=== PATIENT | female | born 1940 | race Caucasian/White ===

== ENCOUNTER 2018-02-21 18:01 | Observation (INO) | payer MEDICARE ==
[2018-02-21] MEDS ORDERED: SODIUM CHLORIDE 0.9% 500 ML INFUS.BAG IV ONE (18:07)
--- NOTE | 2018-02-21 18:11 | PDOC ---
History of Present Illness - General History Source: Patient - History of Present Illness Initial Comments: 02/21/18 18:08 Patient is a 77 year old female with a PMH of colon CA (s/p resection and chemotherapy in [facility]) who was BIBEMS for acute onset of abdominal pain. Patient started suddenly about 2 hours prior to presentation is cramping , constant, 10/10, diffuse and that radiates into her chest. Endorses constipation, has had 1-2 bowel movement every 3 days for the last 2 weeks. Was evaluated by her PMD earlier this week and given a medication for constipation and cannot recall the name. Patient had 1 watery bowel movement today. Patient denies fevers/chills. Patient denies chest pain, shortness of breath. Patient denies cough, sore throat, rhinorhea, visual changes Patient denies dysuria/hematuria. NKDA Surgical: Colon resection (2015), colostomy reversal (February 2016) Social: denies toxic habits PMD: cannot recall name, @ [facility] <Krystin Steiner - Last Filed: 02/21/18 19:10> <Margoth Turner - Last Filed: 02/22/18 01:44> - General Stated Complaint: CONSTIPATION Past History <Krystin Steiner - Last Filed: 02/21/18 19:10> <Margoth Turner - Last Filed: 02/22/18 01:44> - Past Medical History Home Medications: Ambulatory Orders Unobtainable 02/21/18 Review of Systems - Review of Systems Constitutional: No: Chills, Fever HEENTM: No: Blurred Vision, Double Vision Respiratory: No: Cough, Shortness of Breath Cardiac (ROS): No: Chest Pain, Lightheadedness, Palpitations, Syncope ABD/GI: Yes: Other (watery stool). No: Diarrhea, Nausea, Vomiting : No: Burning, Dysuria <Krystin Steiner - Last Filed: 02/21/18 19:10> *Physical Exam - Physical Exam Comments: 02/21/18 18:13 General: alert, awake, moving all 4 extremities, diaphoretic Abdomen: soft, (+) bowel sounds, rebound in LLQ, possible hernia/bulge in LLQ CV: S1/S2, no M/R/G Respiratory: CLTA B/L, no wheeze, crackle Extremity: 2+ DP pulses, no cord/erythema/edema <Krystin Steiner - Last Filed: 02/21/18 19:10> - Vital Signs Last Vital Signs Temp Pulse Resp BP Pulse Ox 97.8 F 63 16 118/68 99 02/21/18 18:19 02/21/18 18:19 02/21/18 18:19 02/21/18 18:19 02/21/18 18:19 <Margoth Turner - Last Filed: 02/22/18 01:44> ED Treatment Course - LABORATORY CBC & Chemistry Diagram: 02/21/18 18:46 02/21/18 18:46 - ADDITIONAL ORDERS Additional order review: Laboratory Results 02/21/18 02/21/18 18:46 18:46 Sodium 143 Potassium 3.0 L Chloride 104 Carbon Dioxide 28 Anion Gap 11 BUN 20 H Creatinine 1.0 Creat Clearance w eGFR 54.05 Random Glucose 88 Lactic Acid 1.7 Calcium 9.3 Total Bilirubin 0.4 AST 17 ALT 15 Alkaline Phosphatase 91 Creatine Kinase 66 Troponin I < 0.02 Total Protein 7.1 Albumin 3.6 Lipase 159 02/21/18 18:46 RBC 4.50 MCV 88.7 MCHC 34.4 RDW 13.2 MPV 9.7 Neutrophils % 37.6 L Lymphocytes % 56.0 H Monocytes % 5.3 Eosinophils % 0.9 Basophils % 0.2 - Medications Given in the ED: ED Medications Discontinued Medications Generic Name Dose Route Start Last Admin Trade Name Freq PRN Reason Stop Dose Admin Morphine Sulfate 4 mg 02/21/18 20:14 02/21/18 20:20 Morphine Injection - IVPUSH 02/21/18 20:15 4 mg ONCE ONE Administration Sodium Chloride 1,000 ml 02/21/18 18:07 02/21/18 19:30 Normal Saline - IV 02/21/18 18:08 1,000 ml ONCE ONE Administration <Margoth Turner - Last Filed: 02/22/18 01:44> Medical Decision Making - Medical Decision Making 02/21/18 18:11 77 year old female with abdominal pain. Peritoneal signs on PE. H/o colon Ca. Frontal diagnosis: hernia, SBO, adhesions, mesenteric ischemia, r/o ACS ( abdominal pain as anginal equivalent), UTI less likely pancreatitis, early appendicitis. Will obtain basic labs, lactic acid, lipase, EKG, troponin. IV fluid + Morphine as well as CT abdomen. Patient signed out to Dr. Aldana (Resident) and Dr. Turner (Attending) <Krystin Steiner - Last Filed: 02/21/18 19:10> *DC/Admit/Observation/Transfer <Krystin Steiner - Last Filed: 02/21/18 19:10> - Discharge Dispostion Decision to Admit order: Yes <Margoth Turner - Last Filed: 02/22/18 01:44> Diagnosis at time of Disposition: Abdominal pain, Hernia
[2018-02-21 19:16] LABS: BASO % 0.2 % (0-2.0); EOS % 0.9 % (0-4.5); HEMATOCRIT 39.9 % (32.4-45.2); HEMOGLOBIN 13.7 GM/dL (10.7-15.3); MCH 30.5 pg (25.7-33.7); MCHC 34.4 g/dl (32.0-36.0); MEAN CELL VOLUME 88.7 fl (80-96); MEAN PLT VOLUME 9.7 fl (7.5-11.1); MONO % 5.3 % (3.8-10.2); NEUT % 37.6 % (42.8-82.8); PLATELET COUNT 178 K/MM3 (134-434); RDW 13.2 % (11.6-15.6); WHITE BLOOD COUNT 13.3 K/mm3 (4.0-10.0)
--- NOTE | 2018-02-21 19:20 | PDOC ---
Attending Attestation - Medical Decision Making 02/22/18 01:[address] Cleveland, surgeon education reviewer, awaiting call back. <Maine Rooney - Last Filed: 02/22/18 01:30> - Resident Resident Name: Krystin Steiner - ED Attending Attestation I have performed the following: I have examined & evaluated the patient, The case was reviewed & discussed with the resident, I agree w/resident's findings & plan, Exceptions are as noted - HPI HPI: 02/21/18 19:17 77-year-old female history of colon cancer status post resection and colostomy and colostomy reversal at [facility] here today complaining of severe pain in the left lower quadrant nausea no vomiting patient had had constipation for several days then took some medication and since been having loose watery stools denies any fever or chills pain is worse with movement or cough otherwise no other moderating factors no recent antibiotic use patient cannot remember the names of her medications - Physicial Exam PE: 02/21/18 19:18 Awake alert no acute distress lungs are clear bilaterally heart is regular without any murmurs rubs or gallops abdomen is soft there is tenderness around the left lower quadrant near the prior colostomy site scar there is a palpable bulge which is nonreducible skin is warm and dry neurologically the patient is alert and oriented 3 - Medical Decision Making 02/21/18 19:19 Differential diagnosis includes small bowel obstruction incarcerated hernia diverticulitis colitis UTI Pyelo. Plan: CT abdomen and pelvis urinalysis CBC CMP IV fluids and pain control 02/22/18 01:[address] with ventral hernia containing bowel no obstruciton, possible foreign truman of chicken bones in sigmoid colon. pt denies eating chicken or chicken bones. on repeat abd exam, still very tender llq, palp hernia due to severe tenderness, mild wbc elevation ua still pending. will admit for observation, surgery consult, pt to be NPO. d/w dr cleveland will see pt in am. 02/22/18 02:07 d/w admitting resident, will admit to dr hunt <Margoth Turner - Last Filed: 02/22/18 02:07> Attestations - Attestations 02/22/18 01:31 Documentation prepared by Maine Rooney, acting as medical radiation therapist for Margoth Turner MD. <Maine Rooney - Last Filed: 02/22/18 01:30>
[2018-02-21 19:51] LABS: ALBUMIN 3.6 g/dl (3.4-5.0); ANION GAP 11 (8-16); BLOOD UREA NITROGEN 20 mg/dL (7-18); CALCIUM 9.3 mg/dL (8.5-10.1); CHLORIDE 104 mmol/L (98-107); CO2 28 mmol/L (21-32); GLUCOSE,RANDOM 88 mg/dL (74-106); LIPASE 159 U/L (73-393); SGOT/AST 17 U/L (15-37); SGPT/ALT 15 U/L (12-78); SODIUM 143 mmol/L (136-145)
[2018-02-21 19:55] LABS: ALK PHOS 91 U/L (45-117); BILIRUBIN,TOTAL 0.4 mg/dL (0.2-1.0); TOT PROT 7.1 g/dl (6.4-8.2)
[2018-02-21] MEDS ORDERED: morphine CARPU-JECT 4 MG/1 ML DISP.SYRIN IVPUSH ONE (20:14)
[2018-02-21] MEDS ORDERED: morphine SULFATE 4 MG/ML VIAL ONE (20:17)
[2018-02-21] MEDS: NYSTATIN 100,000 UNIT/GM TOPICAL CREAM 15 GM TUBE TP SCH (23:00)
[2018-02-22 03:07] LABS: URINE APPEARANCE CLEAR; URINE BILIRUBIN NEGATIVE (<2.0 mg/dL); URINE COLOR LTYELLOW; URINE GLUCOSE (UA) NEGATIVE (NEGATIVE); URINE KETONE NEGATIVE (NEGATIVE); URINE LEUK ESTERASE TRACE (NEGATIVE); URINE NITRITE NEGATIVE (NEGATIVE); URINE PROTEIN NEGATIVE (NEGATIVE); URINE UROBILINOGEN NEGATIVE mg/dL (0.2-1.0)
[2018-02-22 03:15] LABS: EPI CELLS RARE /HPF (FEW); URINE MUCUS RARE
[2018-02-22] MEDS ORDERED: SODIUM CHLORIDE 1,000 ML IV SCH (04:00)
[2018-02-22] MEDS: KCL 10 MEQ IVPB 10 MEQ/100 ML INFUS.BAG IVPB SCH ×2 (04:15→04:36)
[2018-02-22] MEDS ORDERED: KCL 10 MEQ IVPB 20 MEQ/200 ML INFUS.BAG IVPB ONE (04:34)
--- NOTE | 2018-02-22 04:39 | PN ---
Teaching Attending Note Name of Resident: Eliezer Lucero ATTENDING PHYSICIAN STATEMENT I saw and evaluated the patient. I reviewed the resident's note and discussed the case with the resident. I agree with the resident's findings and plan as documented. SUBJECTIVE: Patient is a 77 year old woman with a PMH of colon CA (s/p resection and chemotherapy in [facility]) who presents with acute onset of abdominal pain. Pain started suddenly about 2 hours prior to presentation. Pain is cramping, constant, 10/10, diffuse and radiates into her chest. Has had constipation, but now has diarrhea. Does not remember the name of the laxative she has been taking, but had several watery bowel movements today. Was evaluated by her PMD earlier this week and given a medication for constipation and cannot recall the name. OBJECTIVE: Alert Vital Signs Period Temp Pulse Resp BP Sys/Lane Pulse Ox Last 24 Hr 97.8 F 63 16 118/68 99 HEENT: No Jaundice, eye redness or discharge, PERRLA, EOMI. Normocephalic, atraumatic. External ears are normal and hearing is grossly intact. No nasal discharge. Neck: Supple, nontender. No palpable adenopathy or thyromegaly. No JVD Chest: Good effort. Clear to auscultation and percussion. Heart: Regular. No S3, rub or murmur Abdomen: Large ventral hernia; soft, LLQ tenderness and no HSM. No rebound or guarding. Normoactive bowel sounds. Ext: Peripheral pulses intact. No leg edema. Skin: Warm and dry. No petechiae, rash or ecchymosis. Neuro: Alert. Oriented x3. CN 2-12 grossly intact. Sensation grossly intact in all four extremities and DTR are symmetric. Current Medications Generic Name Dose Route Start Last Admin Trade Name Freq PRN Reason Stop Dose Admin Sodium Chloride 1,000 mls @ 83 mls/hr 02/22/18 04:00 Normal Saline - IV ASDIR NATALIE Potassium Chloride 10 meq in 100 mls @ 100 mls/hr 02/22/18 04:15 Potassium Chloride 10 Meq Premix Ivpb - IVPB 02/22/18 06:14 Q60M NATALIE Nystatin 1 applic 02/21/18 22:30 02/21/18 23:00 Mycostatin Cream - TP 1 dose BID NATALIE Administration Home Medications Medication Instructions Recorded Unobtainable 02/21/18 Abnormal Lab Results 02/21/18 02/21/18 02/22/18 18:46 18:46 00:01 WBC 13.3 H Neutrophils % 37.6 L Lymphocytes % 56.0 H Potassium 3.0 L BUN 20 H Ur Specific [place] 1.054 H Urine Blood 1+ H ASSESSMENT AND PLAN: 1. Abdominal Pain - CT scan shows ventral hernia containing bowel with no obstruction or evidence of infection. Loose BM may be due to laxative use. Leukocytosis with increased lymphocytes is concerning - will monitor and send any new loose stools for analysis. No indication for antibiotics at this time. IV NS at 100 ml/hour for dehydration. Check Mg level, treat with Zofran and protonix and consult surgery. Continue Eliquis for remote DVT. 2. DVT prophylaxis - On Eliquis 3. Advance directives - Full code
--- NOTE | 2018-02-22 04:39 | HP ---
CHIEF COMPLAINT: abdominal pain PCP: Anirudh lopez HISTORY OF PRESENT ILLNESS: Pt is a 77 y/o F with PMH Colon CA s/p resection who presented to the ED with worsening abdominal pain and distension associated with bouts of constipation and diarrhea. Pt was originally diagnosed with colon CA in [facility] after visiting numerous doctors with vague complaint of abdominal pain and finally having exploratory laparotomy in Aug 2015. 22 cm of bowel was removed. Pt can recall there was an issue with the resection because of proximity of the lesion to the anus, but pt cannot recall any other details. She had a colostomy placed during that surgery. She was treated with Chemotherapy (no radiation) from December - May 2016. She had 8 sessions total each lasting 3 days and occurring every 21 days. Pt also experienced LLE DVT. She had an IVC filter placed and was put on Eliquis 5 bid, which she continues to take. Her colostomy was reversed in Feb 2017. However, she was told that because of the duration of the surgery (>8hrs), her abdominal was could not be repaired properly at that time. [place] the [place] in Feb [place] and has been going to several doctors in with complaint of abdominal pain and constipation. So far, she states she has been given many medications, especially many laxitives, but her symptoms have not resolved. Pt also states she had divirticulosis 4 months ago which resolved spontaneously. Today, pt comes to ED with complaint of unusually bad lower abdominal pain associated with abdominal distension and intermittent diarrhea vs constipation. It is the same pain she's had in the past. ER course was notable for: (1) WBC 13, K 3, UA: 1+ blood, high specific gravity (2) Abdominal/pelvic C. showed fluid in abdomen (3) Recent Travel: PAST MEDICAL HISTORY: Colon CA, DVT (provoked), divirticulosis PAST SURGICAL HISTORY: colon resection, and repair Social History: Smoking:denies Alcohol:denies Drugs: denies Family History: Allergies Fish Containing Products Allergy (Mild, Verified 02/21/18 20:11) Itching HOME MEDICATIONS: Home Medications Medication Instructions Recorded Unobtainable 02/21/18 REVIEW OF SYSTEMS CONSTITUTIONAL: Absent: fever, chills, diaphoresis, generalized weakness, malaise, loss of appetite, weight change HEENT: Absent: rhinorrhea, nasal congestion, throat pain, throat swelling, difficulty swallowing, mouth swelling, ear pain, eye pain, visual changes CARDIOVASCULAR: Absent: chest pain, syncope, palpitations, irregular heart rate, lightheadedness , peripheral edema RESPIRATORY: Absent: cough, shortness of breath, dyspnea with exertion, orthopnea, wheezing, stridor, hemoptysis GASTROINTESTINAL:abdominal pain Absent: , abdominal distension, nausea, vomiting, diarrhea, constipation, melena , hematochezia GENITOURINARY: Absent: dysuria, frequency, urgency, hesitancy, hematuria, flank pain, genital pain MUSCULOSKELETAL: Absent: myalgia, arthralgia, joint swelling, back pain, neck pain SKIN: Absent: rash, itching, pallor HEMATOLOGIC/IMMUNOLOGIC: Absent: easy bleeding, easy bruising, lymphadenopathy, frequent infections ENDOCRINE: Absent: unexplained weight gain, unexplained weight loss, heat intolerance, cold intolerance NEUROLOGIC: burning sensation of plantar regions of feet Absent: headache, focal weakness or paresthesias, dizziness, unsteady gait, seizure, mental status changes, bladder or bowel incontinence PSYCHIATRIC: Absent: anxiety, depression, suicidal or homicidal ideation, hallucinations. PHYSICAL EXAMINATION Vital Signs - 24 hr 02/21/18 18:19 Temperature 97.8 F Pulse Rate 63 Respiratory 16 Rate Blood Pressure 118/68 O2 Sat by Pulse 99 Oximetry (%) Gen: NAD, lying in bed HEENT: NCAT, PERRL, EOMI Neck: supple no jvd Cardio: rrr, normal s1s2, no mrg appreciated Pulm: cta b/l Abd: soft. Surgical scars throughout. tender to palpation inferior epigastric region, LLQ Laboratory Results - last 24 hr 02/21/18 02/21/18 02/21/18 18:46 18:46 18:46 WBC 13.3 H RBC 4.50 Hgb 13.7 Hct 39.9 MCV 88.7 MCH 30.5 MCHC 34.4 RDW 13.2 Plt Count 178 MPV 9.7 Absolute Neuts (auto) 5.0 Neutrophils % 37.6 L Lymphocytes % 56.0 H Monocytes % 5.3 Eosinophils % 0.9 Basophils % 0.2 Nucleated RBC % 0 Sodium 143 Potassium 3.0 L Chloride 104 Carbon Dioxide 28 Anion Gap 11 BUN 20 H Creatinine 1.0 Creat Clearance w eGFR 54.05 Random Glucose 88 Lactic Acid 1.7 Calcium 9.3 Total Bilirubin 0.4 AST 17 ALT 15 Alkaline Phosphatase 91 Creatine Kinase 66 Troponin I < 0.02 Total Protein 7.1 Albumin 3.6 Lipase 159 Urine Color Urine Appearance Urine pH Ur Specific [place] Urine Protein Urine Glucose (UA) Urine Ketones Urine Blood Urine Nitrite Urine Bilirubin Urine Urobilinogen Ur Leukocyte Esterase Urine WBC (Auto) Urine RBC (Auto) Ur Epithelial Cells Urine Mucus 02/22/18 00:01 WBC RBC Hgb Hct MCV MCH MCHC RDW Plt Count MPV Absolute Neuts (auto) Neutrophils % Lymphocytes % Monocytes % Eosinophils % Basophils % Nucleated RBC % Sodium Potassium Chloride Carbon Dioxide Anion Gap BUN Creatinine Creat Clearance w eGFR Random Glucose Lactic Acid Calcium Total Bilirubin AST ALT Alkaline Phosphatase Creatine Kinase Troponin I Total Protein Albumin Lipase Urine Color Ltyellow Urine Appearance Clear Urine pH 8.0 Ur Specific [place] 1.054 H Urine Protein Negative Urine Glucose (UA) Negative Urine Ketones Negative Urine Blood 1+ H Urine Nitrite Negative Urine Bilirubin Negative Urine Urobilinogen Negative Ur Leukocyte Esterase Trace Urine WBC (Auto) 1 Urine RBC (Auto) 11 Ur Epithelial Cells Rare Urine Mucus Rare ASSESSMENT/PLAN: Pt is a 77 y/o F with PMH Colon CA s/p resection who presented to the ED with worsening abdominal pain and distension associated with bouts of constipation and diarrhea. #Abdominal pain -hernia present on CT - however, no evidence of strangulation -NPO -Surg consult -IR consult for possible paracentesis, NS repeat labs #DVT -c/w eliquis #HypoK -repleting #FEN -NS -lytes wnl -NPO #PPx -on eliquis #dispo -med/surg for eval by surgery Note: Medications reconciled with the patient. Visit type - Emergency Visit Emergency Visit: Yes ED Registration Date: 02/22/18 Care time: The patient presented to the Emergency Department on the above date and was hospitalized for further evaluation of their emergent condition. - New Patient This patient is new to me today: Yes Date on this admission: 02/22/18 - Critical Care Critical Care patient: No Hospitalist Screening - Colonoscopy Questionnaire Colonoscopy Questionnaire: Colonoscopy Questionnaire - Patient: 50 - 75 years old and never had a screening colonoscopy: Unknown History of colon or rectal polyps, or CA: Unknown History of IBD, Crohn's disease or UC: Unknown History of abdominal radiation therapy as a child: Unknown - Relative: 1 with colon or rectal CA, or polyps at age 60 or younger: Unknown Colon or rectal CA diagnosed at age 45 or younger: Unknown Multiple relatives with colon or rectal CA: Unknown - Outcome: Screening Result: Negative Screen
[2018-02-22 07:25] LABS: BASO % 0.9 % (0-2.0); EOS % 1.9 % (0-4.5); HEMATOCRIT 39.1 % (32.4-45.2); HEMOGLOBIN 13.5 GM/dL (10.7-15.3); LYMPH % 44.7 % (8-40); MCH 31.2 pg (25.7-33.7); MCHC 34.5 g/dl (32.0-36.0); MEAN CELL VOLUME 90.5 fl (80-96); MEAN PLT VOLUME 9.6 fl (7.5-11.1); MONO % 6.1 % (3.8-10.2); NEUT % 46.4 % (42.8-82.8); PLATELET COUNT 156 K/MM3 (134-434); RBC 4.32 M/mm3 (3.60-5.2); RDW 13.3 % (11.6-15.6); WHITE BLOOD COUNT 8.4 K/mm3 (4.0-10.0)
[2018-02-22 07:50] LABS: CHLORIDE 108 mmol/L (98-107); SODIUM 145 mmol/L (136-145)
[2018-02-22 07:58] LABS: ALBUMIN 3.3 g/dl (3.4-5.0); ALK PHOS 88 U/L (45-117); ANION GAP 11 (8-16); BILIRUBIN,TOTAL 0.4 mg/dL (0.2-1.0); BLOOD UREA NITROGEN 15 mg/dL (7-18); CALCIUM 8.3 mg/dL (8.5-10.1); CO2 26 mmol/L (21-32); CREATININE 0.7 mg/dL (0.55-1.02); GLUCOSE,RANDOM 90 mg/dL (74-106); PHOSPHOROUS 2.9 mg/dL (2.5-4.9); SGPT/ALT 13 U/L (12-78); TOT PROT 6.3 g/dl (6.4-8.2)
[2018-02-22 08:15] LABS: POTASSIUM 3.6 mmol/L (3.5-5.1)
[2018-02-22 08:19] LABS: MAGNESIUM 2.2 mg/dL (1.8-2.4); SGOT/AST 20 U/L (15-37)
--- NOTE | 2018-02-22 09:38 | PN ---
Physical Exam: SUBJECTIVE: Patient seen and examined, some lower abdominal pain, no diarrhea currently. Wants to drink. No other complaints OBJECTIVE: Vital Signs Period Temp Pulse Resp BP Sys/Lane Pulse Ox Last 24 Hr 97.8 F-98.4 F 60-63 16-17 118-125/68-78 95-99 GENERAL: lying in bed in no acute distress Chest; CTAB, no rales or wheezing Abdomen:Soft, lower abdominal tenderness, no voluntary or involuntary guarding or rigidity, positive bowel sounds Extremities: no edema Laboratory Results - last 24 hr 02/21/18 02/21/18 02/21/18 18:46 18:46 18:46 WBC 13.3 H RBC 4.50 Hgb 13.7 Hct 39.9 MCV 88.7 MCH 30.5 MCHC 34.4 RDW 13.2 Plt Count 178 MPV 9.7 Absolute Neuts (auto) 5.0 Neutrophils % 37.6 L Neutrophils % (Manual) Band Neutrophils % Lymphocytes % 56.0 H Lymphocytes % (Manual) Monocytes % 5.3 Monocytes % (Manual) Eosinophils % 0.9 Eosinophils % (Manual) Basophils % 0.2 Basophils % (Manual) Myelocytes % (Man) Nucleated RBC % 0 Metamyelocytes Sodium 143 Potassium 3.0 L Chloride 104 Carbon Dioxide 28 Anion Gap 11 BUN 20 H Creatinine 1.0 Creat Clearance w eGFR 54.05 Random Glucose 88 Hemoglobin A1c % Lactic Acid 1.7 Calcium 9.3 Phosphorus Magnesium Total Bilirubin 0.4 AST 17 ALT 15 Alkaline Phosphatase 91 Creatine Kinase 66 Troponin I < 0.02 Total Protein 7.1 Albumin 3.6 Lipase 159 Urine Color Urine Appearance Urine pH Ur Specific [place] Urine Protein Urine Glucose (UA) Urine Ketones Urine Blood Urine Nitrite Urine Bilirubin Urine Urobilinogen Ur Leukocyte Esterase Urine WBC (Auto) Urine RBC (Auto) Ur Epithelial Cells Urine Mucus 02/22/18 02/22/18 02/22/18 00:01 06:00 06:40 WBC RBC Hgb Hct MCV MCH MCHC RDW Plt Count MPV Absolute Neuts (auto) Neutrophils % Neutrophils % (Manual) Band Neutrophils % Lymphocytes % Lymphocytes % (Manual) Monocytes % Monocytes % (Manual) Eosinophils % Eosinophils % (Manual) Basophils % Basophils % (Manual) Myelocytes % (Man) Nucleated RBC % Metamyelocytes Sodium 145 Potassium 3.6 Chloride 108 H Carbon Dioxide 26 Anion Gap 11 BUN 15 Creatinine 0.7 Creat Clearance w eGFR > 60 Random Glucose 90 Hemoglobin A1c % 6.1 H Lactic Acid Calcium 8.3 L Phosphorus 2.9 Magnesium 2.2 Total Bilirubin 0.4 AST 20 ALT 13 Alkaline Phosphatase 88 Creatine Kinase Troponin I Total Protein 6.3 L Albumin 3.3 L Lipase Urine Color Ltyellow Urine Appearance Clear Urine pH 8.0 Ur Specific [place] 1.054 H Urine Protein Negative Urine Glucose (UA) Negative Urine Ketones Negative Urine Blood 1+ H Urine Nitrite Negative Urine Bilirubin Negative Urine Urobilinogen Negative Ur Leukocyte Esterase Trace Urine WBC (Auto) 1 Urine RBC (Auto) 11 Ur Epithelial Cells Rare Urine Mucus Rare 02/22/18 06:45 WBC 8.4 RBC 4.32 Hgb 13.5 Hct 39.1 MCV 90.5 MCH 31.2 MCHC 34.5 RDW 13.3 Plt Count 156 MPV 9.6 Absolute Neuts (auto) 3.9 Neutrophils % 46.4 D Neutrophils % (Manual) 46.0 Band Neutrophils % 0.0 Lymphocytes % 44.7 H D Lymphocytes % (Manual) 45.0 H Monocytes % 6.1 Monocytes % (Manual) 3 L Eosinophils % 1.9 D Eosinophils % (Manual) 3.0 Basophils % 0.9 D Basophils % (Manual) 0.0 Myelocytes % (Man) 0 Nucleated RBC % 0 Metamyelocytes 0 Sodium Potassium Chloride Carbon Dioxide Anion Gap BUN Creatinine Creat Clearance w eGFR Random Glucose Hemoglobin A1c % Lactic Acid Calcium Phosphorus Magnesium Total Bilirubin AST ALT Alkaline Phosphatase Creatine Kinase Troponin I Total Protein Albumin Lipase Urine Color Urine Appearance Urine pH Ur Specific [place] Urine Protein Urine Glucose (UA) Urine Ketones Urine Blood Urine Nitrite Urine Bilirubin Urine Urobilinogen Ur Leukocyte Esterase Urine WBC (Auto) Urine RBC (Auto) Ur Epithelial Cells Urine Mucus Active Medications Generic Name Dose Route Start Last Admin Trade Name Freq PRN Reason Stop Dose Admin Sodium Chloride 1,000 mls @ 83 mls/hr 02/22/18 04:00 02/22/18 04:00 Normal Saline - IV 83 mls/hr ASDIR NATALIE Administration Nystatin 1 applic 02/21/18 22:30 02/21/18 23:00 Mycostatin Cream - TP 1 dose BID NATALIE Administration ASSESSMENT/PLAN: 77 yof with PMhx of Colon ca s/p resection/chemotherapy 2015, reversal 02/2017, LLE DVT s/p IVC filter on Eliquis, chronic diarrhea intermittently with constipation, seen multiple providers admitted with worsening abdominal pain. -Abdominal pain -LLE DVT s/p IVC filter, on eliquis - Colon ca s/p resection/chemotherapy 2015, reversal 02/2017 Plan: CT A/p noted, ?Foreign body in sigmoid colon, no obstruction or perforation, follow up official read. Surgery consult appreciated. WBC normalized. ADvance to regular diet as tolerated. d/c IVF once PO intake adequate. Zofran/protonix. Continue eliquis. Dispo d/c in 24 hours if tolerating diet and no new concerns. Plan discussed with patient and RN in detail, all questions answered. Visit type - Emergency Visit Emergency Visit: Yes ED Registration Date: 02/22/18 Care time: The patient presented to the Emergency Department on the above date and was hospitalized for further evaluation of their emergent condition. - New Patient This patient is new to me today: Yes Date on this admission: 02/22/18 - Critical Care Critical Care patient: No - Discharge Referral Referred to [facility] Med P.C.: No
--- NOTE | 2018-02-22 09:41 | CONSULT ---
Consult Consult Specialty:: General surgery Reason for Consultation:: Ventral Hernia - History of Present Illness Chief Complaint: Abdominal pain History of Present Illness: 77 yo female PMH DM, Colon CA s/p resection s/p colostomy reversal who presented to the ED with worsening abdominal pain and distension associated with bouts of constipation and diarrhea. She has a ventral hernia. She has not had vomiting, fevers or chills. He pain was difficult to control in the ED. We were asked to assess. - History Source History Provided By: Patient, Medical Record Limitations to Obtaining History: No Limitations - Past Medical History Gastrointestinal: Yes: Cancer - Past Surgical History Past Surgical History: Yes: Colectomy, Colostomy - Alcohol/Substance Use Hx Alcohol Use: No - Smoking History Smoking history: Never smoked Have you smoked in the past 12 months: No - Social History ADL: Independent Place of : Other ([facility]) History of Recent Travel: No Home Medications - Allergies Allergies/Adverse Reactions: Allergies Allergy/AdvReac Type Severity Reaction Status Date / Time Fish Containing Products Allergy Mild Itching Verified 02/21/18 20:11 - Home Medications Home Medications: Ambulatory Orders Calcium Carbonate/Vitamin D3 [Jason-Quick Liquid] 480 ml PO DAILY 02/22/18 Review of Systems - Review of Systems Constitutional: denies: Chills, Fever Eyes: denies: Blind Spots, Recent Change in Vision HENT: denies: Difficult Swallowing, Throat Pain Neck: denies: Pain on Movement, Swollen Glands, Tenderness Cardiovascular: denies: Chest Pain, Edema Respiratory: denies: Cough, SOB Gastrointestinal: reports: Abdominal Pain, Constipation, Diarrhea. denies: Bloating, Indigestion, Nausea, Vomiting Genitourinary: denies: Flank Pain Breasts: reports: No Symptoms Reported. denies: Pain Integumentary: denies: Rash, Wound Neurological: denies: Confusion, Incoordination Endocrine: denies: Unexplained Weight Gain, Unexplained Weight Loss Hematology/Lymphatic: denies: Easily Bruised, Excessive Bleeding Psychiatric: denies: Anxiety, Depression Physical Exam Vital Signs: Vital Signs Temperature 98.4 F 02/22/18 06:47 Pulse Rate 60 02/22/18 06:47 Respiratory Rate 17 02/22/18 06:47 Blood Pressure 125/78 02/22/18 06:47 O2 Sat by Pulse Oximetry (%) 95 02/22/18 06:47 Constitutional: Yes: Well Nourished, No Distress, Calm Eyes: Yes: Conjunctiva Clear, EOM Intact HENT: Yes: Atraumatic, Normocephalic Neck: Yes: Supple, Trachea Midline Cardiovascular: Yes: Regular Rate and Rhythm, S1, S2 Respiratory: Yes: Regular, CTA Bilaterally Gastrointestinal: Yes: Normal Bowel Sounds, Soft, Abdomen, Obese, Hernia (Large reducible ventral hernia FULLY reducible. discomfort of LLQ former colostomy site.), Tenderness (Hernia). No: Ascites, Distention, Tenderness, Epigastrium, Tenderness, Rebound ...Rectal Exam: No: Hemorrhoids/External, Hemorrhoids/Internal, Mass, Sphincter Tone Normal Renal/: No: CVA Tenderness - Left, CVA Tenderness - Right Musculoskeletal: No: Muscle Pain, Muscle Weakness Extremities: No: Cool, Cyanosis Edema: No Peripheral Pulses WNL: Yes Integumentary: No: Erythema, Incision, Jaundice Wound/Incision: Yes: Clean/Dry, Other (Wel healed with underlying hernias) Neurological: Yes: Alert, Oriented Psychiatric: Yes: Alert, Oriented Labs: CBC, BMP 02/22/18 06:45 02/22/18 06:40 Imaging - Results Cat Scan: Report Reviewed, Image Reviewed Problem List - Problems (1) Ventral hernia without obstruction or gangrene Assessment/Plan: Ventral incisional hernias are fully reducible, may have ingested bones as well. She is passing BM and flatus, pain may be related to concominant chronic constipation. No acute surgical intervention. WBC 13-->8 after hydration. Diet as tolerated adequate analgesia increase hydration and dietary fiber GI for followup endoscopy and bowel regimen Will follow peripherally Thank you for the opportunity to participate in the care of this patient. Code(s): K43.9 - VENTRAL HERNIA WITHOUT OBSTRUCTION OR GANGRENE (2) Abdominal pain Code(s): R10.9 - UNSPECIFIED ABDOMINAL PAIN Qualifiers: Abdominal location: generalized Qualified Code(s): R10.84 - Generalized abdominal pain (3) History of colon cancer, no staging Code(s): Z85.038 - PERSONAL HISTORY OF MALIGNANT NEOPLASM OF LARGE INTESTINE (4) Constipation Code(s): K59.00 - CONSTIPATION, UNSPECIFIED
[2018-02-22] MEDS ORDERED: ONDANSETRON 4 MG/2 ML VIAL IVPUSH PRN (09:42)
[2018-02-22] MEDS ORDERED: PANTOPRAZOLE SODIUM 40 MG VIAL ONE (10:16)
[2018-02-22] MEDS: DEXTROSE 5%-NORMAL SALINE 1,000 ML IV SCH ×2 (10:35→17:53)
[2018-02-22] MEDS: APIXABAN 5 MG TABLET PO SCH ×2 (10:35→22:30)
[2018-02-22] MEDS: PANTOPRAZOLE SODIUM 40 MG VIAL IVPUSH SCH (10:35)
[2018-02-22] MEDS: NYSTATIN 100,000 UNIT/GM TOPICAL CREAM 15 GM TUBE TP SCH ×2 (10:37→22:31)
[2018-02-22] MEDS ORDERED: BISACODYL 5 MG TABLET.DR (FP) PO ONE (13:34)
[2018-02-22 17:05] VITALS: BMI 25.2
--- NOTE | 2018-02-22 19:17 | EKG ---
Test Reason : Blood Pressure : / mmHG Vent. Rate : 055 BPM Atrial Rate : 055 BPM P-R Int : 148 ms QRS Dur : 088 ms QT Int : 462 ms P-R-T Axes : 040 013 025 degrees QTc Int : 441 ms SINUS BRADYCARDIA OTHERWISE NORMAL ECG NO PREVIOUS ECGS AVAILABLE Confirmed by MD BARTOLO, FLORIN ([id number]) on 02/22/2018 7:17:00 PM Referred By: Confirmed By:FLORIN MCFARLAND MD
[2018-02-23 08:41] LABS: BASO % 1.1 % (0-2.0); EOS % 2.2 % (0-4.5); HEMATOCRIT 38.9 % (32.4-45.2); HEMOGLOBIN 13.5 GM/dL (10.7-15.3); LYMPH % 41.4 % (8-40); MCH 31.3 pg (25.7-33.7); MCHC 34.6 g/dl (32.0-36.0); MEAN CELL VOLUME 90.6 fl (80-96); MEAN PLT VOLUME 9.4 fl (7.5-11.1); MONO % 3.9 % (3.8-10.2); NEUT % 51.4 % (42.8-82.8); PLATELET COUNT 142 K/MM3 (134-434); RBC 4.29 M/mm3 (3.60-5.2); RDW 13.6 % (11.6-15.6); WHITE BLOOD COUNT 9.1 K/mm3 (4.0-10.0)
[2018-02-23 09:03] LABS: ANION GAP 6 (8-16); BLOOD UREA NITROGEN 7 mg/dL (7-18); CALCIUM 8.4 mg/dL (8.5-10.1); CHLORIDE 109 mmol/L (98-107); CO2 30 mmol/L (21-32); CREATININE 0.7 mg/dL (0.55-1.02); GLUCOSE,RANDOM 120 mg/dL (74-106); PHOSPHOROUS 3.1 mg/dL (2.5-4.9); POTASSIUM 3.6 mmol/L (3.5-5.1); SODIUM 145 mmol/L (136-145)
--- NOTE | 2018-02-23 09:48 | PN ---
Progress Note, Physician Chief Complaint: abdominal pain History of Present Illness: 77 yo female PMH DM, Colon CA s/p resection s/p colostomy reversal who presented to the ED with worsening abdominal pain and distension associated with bouts of constipation and diarrhea. stable overnight. complains of abdominal pain, but improved from admission. - Current Medication List Current Medications: Active Medications Apixaban (Eliquis -) 5 mg PO BID [facility] Last Admin: 02/22/18 22:30 Dose: 5 mg Dextrose/Sodium Chloride (D5-Ns -) 1,000 mls @ 100 mls/hr IV ASDIR [facility] Last Admin: 02/22/18 17:53 Dose: 100 mls/hr Nystatin (Mycostatin Cream -) 1 applic TP BID [facility] Last Admin: 02/22/18 22:31 Dose: Not Given Ondansetron HCl (Zofran Injection) 4 mg IVPUSH Q6H PRN PRN Reason: NAUSEA Pantoprazole Sodium (Protonix Iv) 40 mg IVPUSH DAILY [facility] Last Admin: 02/22/18 10:35 Dose: 40 mg - Objective Vital Signs: Vital Signs Temperature 98.7 F 02/23/18 06:00 Pulse Rate 55 L 02/23/18 06:00 Respiratory Rate 20 02/23/18 06:00 Blood Pressure 120/59 02/23/18 06:00 O2 Sat by Pulse Oximetry (%) 98 02/22/18 17:00 Vital Signs Period Temp Pulse Resp BP Sys/Lane Pulse Ox Last 24 Hr 98.1 F-98.9 F 50-76 18-20 92-132/52-72 98-98 Intake & Output 02/22/18 02/23/18 02/23/18 23:59 07:59 15:59 Intake Total 850 150 Balance 850 150 Weight 142 lb 9 oz 138 lb Intake: IV 500 D5-Ns - 1,000 ml @ 100 500 mls/hr IV ASDIR [facility] Rx#: [id number] Oral 350 150 Other: Voiding Method Toilet Toilet # Unmeasured Voids Void 2 1 Bowel Movement No Height 5 ft 3 in Body Mass Index (BMI) 25.2 Weight Measurement Method Built in [facility] Constitutional: Yes: Well Nourished, No Distress, Calm Eyes: Yes: Conjunctiva Clear, EOM Intact HENT: Yes: Atraumatic Neck: Yes: Supple, Trachea Midline Cardiovascular: Yes: Regular Rate and Rhythm, S1, S2 Respiratory: Yes: Regular, CTA Bilaterally Gastrointestinal: Yes: Normal Bowel Sounds, Soft, Tenderness (discomfort at the hernia). No: Tenderness, Epigastrium, Tenderness, Rebound ...Rectal Exam: Yes: Deferred Genitourinary: No: CVA Tenderness - Left, CVA Tenderness - Right Musculoskeletal: No: Muscle Pain, Muscle Weakness Extremities: No: Cool, Cyanosis Edema: No Peripheral Pulses WNL: Yes Peripheral Pulses: Left Radial: 2+, Right Radial: 2+, Left Doralis Pedis: 2+, Right Dorsalis Pedis: 2+ Integumentary: No: Erythema, Incision, Jaundice Neurological: Yes: Alert, Oriented Psychiatric: Yes: Alert, Oriented Labs: CBC, BMP 02/23/18 07:30 02/23/18 07:30 Problem List - Problems (1) Ventral hernia without obstruction or gangrene Assessment/Plan: Ventral incisional hernias are fully reducible, may have ingested bones as well. She is passing BM and flatus, pain may be related to concominant chronic constipation. No acute surgical intervention. WBC 13-->8 after hydration. tolerating regular diet. adequate analgesia increase hydration and dietary fiber GI for followup endoscopy and bowel regimen Will follow peripherally Code(s): K43.9 - VENTRAL HERNIA WITHOUT OBSTRUCTION OR GANGRENE (2) Abdominal pain Code(s): R10.9 - UNSPECIFIED ABDOMINAL PAIN Qualifiers: Abdominal location: generalized Qualified Code(s): R10.84 - Generalized abdominal pain (3) History of colon cancer, no staging Code(s): Z85.038 - PERSONAL HISTORY OF MALIGNANT NEOPLASM OF LARGE INTESTINE (4) Constipation Code(s): K59.00 - CONSTIPATION, UNSPECIFIED
[2018-02-23] MEDS: PANTOPRAZOLE SODIUM 40 MG VIAL IVPUSH SCH (10:37)
[2018-02-23] MEDS: APIXABAN 5 MG TABLET PO SCH (10:37)
[2018-02-23] MEDS: NYSTATIN 100,000 UNIT/GM TOPICAL CREAM 15 GM TUBE TP SCH (10:38)
[2018-02-23] MEDS: DEXTROSE 5%-NORMAL SALINE 1,000 ML IV SCH (10:38)
--- NOTE | 2018-02-23 13:04 | PN ---
Teaching Attending Note Name of Resident: Salvador Britt ATTENDING PHYSICIAN STATEMENT I saw and evaluated the patient. I reviewed the resident's note and discussed the case with the resident. I agree with the resident's findings and plan as documented with exceptions below. SUBJECTIVE: Patient seen and examined. no abdominal pain or urinary symptoms. Tolerating diet well. OBJECTIVE: Vital Signs Period Temp Pulse Resp BP Sys/Lane Pulse Ox Last 24 Hr 98.1 F-98.9 F 50-76 16-20 92-133/52-72 98-98 General: sitting in bed in no distress HEENT: left inferior eyelid hordoleum (chronic per patient) Abdomen:Soft, NT throughout, ND, positive bowel sounds, no voluntary or involuntary guarding or rigidity or CVA tenderness Active Medications Apixaban (Eliquis -) 5 mg PO BID [facility] Last Admin: 02/23/18 10:37 Dose: 5 mg Dextrose/Sodium Chloride (D5-Ns -) 1,000 mls @ 100 mls/hr IV ASDIR [facility] Last Admin: 02/23/18 10:38 Dose: Not Given Nystatin (Mycostatin Cream -) 1 applic TP BID [facility] Last Admin: 02/23/18 10:38 Dose: Not Given Ondansetron HCl (Zofran Injection) 4 mg IVPUSH Q6H PRN PRN Reason: NAUSEA Pantoprazole Sodium (Protonix Iv) 40 mg IVPUSH DAILY [facility] Last Admin: 02/23/18 10:37 Dose: 40 mg Laboratory Results - last 24 hr 02/23/18 02/23/18 07:30 07:30 WBC 9.1 RBC 4.29 Hgb 13.5 Hct 38.9 MCV 90.6 MCH 31.3 MCHC 34.6 RDW 13.6 Plt Count 142 MPV 9.4 Absolute Neuts (auto) 4.7 Neutrophils % 51.4 Lymphocytes % 41.4 H Monocytes % 3.9 Eosinophils % 2.2 Basophils % 1.1 Nucleated RBC % 0 Sodium 145 Potassium 3.6 Chloride 109 H Carbon Dioxide 30 Anion Gap 6 L BUN 7 Creatinine 0.7 Creat Clearance w eGFR > 60 Random Glucose 120 H Calcium 8.4 L Phosphorus 3.1 Magnesium 2.0 Microbiology 02/22/18 00:01 Urine - Urine Clean Catch Urine Culture - Preliminary Lactose Fermenting Neg Bacilli Group D Strep Or Entero Coccus 02/21/18 18:46 Blood - Peripheral Venous Blood Culture - Preliminary NO GROWTH OBTAINED AFTER 24 HOURS, INCUBATION TO CONTINUE FOR 4 DAYS. 02/21/18 18:46 Blood - Peripheral Venous Blood Culture - Preliminary NO GROWTH OBTAINED AFTER 24 HOURS, INCUBATION TO CONTINUE FOR [address] A/P noted undigested food fragments, no acute process. ASSESSMENT AND PLAN: 77 yof with PMhx of Colon ca s/p resection/chemotherapy 2015, reversal 02/2017, LLE DVT s/p IVC filter on Eliquis, chronic diarrhea intermittently with constipation, seen multiple providers admitted with worsening abdominal pain. -Abdominal pain -LLE DVT s/p IVC filter, on eliquis - Colon ca s/p resection/chemotherapy 2015, reversal 02/2017 -Asymptomatic bacteruria Plan: CT A/p official read noted, Surgery input appreciated. WBC normalized, tolerating diet well,abdominal exam non concerning. D/ cpatient with outpatient GI follow up. Advised warm compresses for stye and outpatient ophthalmology follow up. No urinary symptoms, u/a clean, afebrile, normal WBC currently.No indication for antibiotics currently. Advised to seek care if any new urinary symptoms or belly or back pain noted. Continue eliquis. Dispo d/c home today, patient advised outpatient follow up with medical clinic and GI follow up for possible colonosocpy. Plan discussed with patient in detail, all questions answered, patient relays understanding and in agreement.
[2018-02-23 15:05] VITALS: TEMP 97.4
--- NOTE | 2018-02-23 16:15 | DS ---
Physical Exam: SUBJECTIVE: Patient seen and examined at bedside. no abdominal pain or urinary symptoms. Tolerating PO well. denies fevers chills OBJECTIVE: Vital Signs Period Temp Pulse Resp BP Sys/Lane Pulse Ox Last 24 Hr 97.4 F-98.9 F 50-76 16-20 92-133/52-69 98-98 PHYSICAL EXAM Gen: NAD, lying in bed HEENT: NCAT, PERRL, EOMI Neck: supple no jvd Cardio: rrr, normal s1s2, no mrg appreciated Pulm: cta b/l Abd: soft. Surgical scars throughout. tender to palpation inferior epigastric region, LLQ LABS Laboratory Results - last 24 hr 02/23/18 02/23/18 07:30 07:30 WBC 9.1 RBC 4.29 Hgb 13.5 Hct 38.9 MCV 90.6 MCH 31.3 MCHC 34.6 RDW 13.6 Plt Count 142 MPV 9.4 Absolute Neuts (auto) 4.7 Neutrophils % 51.4 Lymphocytes % 41.4 H Monocytes % 3.9 Eosinophils % 2.2 Basophils % 1.1 Nucleated RBC % 0 Sodium 145 Potassium 3.6 Chloride 109 H Carbon Dioxide 30 Anion Gap 6 L BUN 7 Creatinine 0.7 Creat Clearance w eGFR > 60 Random Glucose 120 H Calcium 8.4 L Phosphorus 3.1 Magnesium 2.0 HOSPITAL COURSE: Date of Admission:02/22/18 Date of Discharge: 02/23/18 77 yo F with PMH of Colon ca s/p resection/chemotherapy 2015, reversal 02/2017, LLE DVT s/p IVC filter on Eliquis, chronic diarrhea intermittently with constipation, seen multiple providers admitted with worsening abdominal pain and distension. Admitted for abdominal pain. VSS and afebrile, noted to have leukocytosis that resolved w/ IV hydration. UA negative. Bcx neg. CT A/P noted for undigested food fragments, no acute process/no evidence of strangulation or SBO. Surgery consulted but no acute surgical intervention indicated. Pt was made NPO and given IVF, PPI, Zofran. pt sxs improved and diet was advanced. Pt tolerating PO well and passing BM and flatus Of note pt found w/ Asymptomatic bacteruria, Ucx growing Lactose Fermenting Neg Bacilli. No abx tx indicated at this time. pt informed and advised to seek care if any urinary sxs develop Pt advised to apply warm compresses for stye and outpatient ophthalmology follow up. Referred for outpatient GI follow up and advised for GI follow up for possible colonoscopy if sxs dont improve/reoccur. Pt is stable and ready for discharge. Minutes to complete discharge: 35 Discharge Summary Reason For Visit: HERNIA Current Active Problems Abdominal pain (Acute) Constipation (Acute) Hernia (Acute) Ventral hernia without obstruction or gangrene (Acute) History of colon cancer, no staging (Chronic) Condition: Stable - Instructions Diet, Activity, Other Instructions: You were admitted for abdominal pain, diarrhea, and constipation. We gave you pain meds and fluids which helped your pain. We gave you food and fiber which you tolerated well and helped with your bowel movements. We did a CT scan of your belly which was non concerning. 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 Please resume your home meds. Please take laxatives as needed Please make sure you walk around which will help with bowel movements. Please follow up with your primary care physician at [facility] in 1 week. Please follow up with Dr. Cleveland in 1 week if your abdominal pain severely worsens. Please follow up with GI doctor in 1 week for a possible colonoscopy if your abdominal pain severely worsens. If you experience any worsening of abdominal pain, fevers, diarrhea, pain or burning with urination, blood in your pee, shortness of breath, blood in your stools, constipation, please jason 911 or come to the ER. Referrals: Sahil Cueto MD [Staff Physician] - 1 Week Darnell Cleveland MD [Staff Physician] - 1 Week Disposition: HOME - Home Medications Comprehensive Discharge Medication List: Ambulatory Orders Apixaban [Eliquis -] 5 mg PO BID 02/22/18 Calcium Carbonate/Vitamin D3 [Jason-Quick Liquid] 480 ml PO DAILY 02/22/18 This patient is new to me today: Yes Date on this admission: 02/23/18 Emergency Visit: Yes ED Registration Date: 02/22/18 Care time: The patient presented to the Emergency Department on the above date and was hospitalized for further evaluation of their emergent condition. Critical Care patient: No - Discharge Referral Referred to [facility] No
[2018-02-23 17:02] VITALS: BP 139/54; PULSE 63
== END 2018-02-23 20:10 | disposition home or self-care (01) ==
LOC: JER 18:01 → JERBED 02-22 01:44 → J8W 02-22 12:18
PROVIDERS: ADMIT Internal Medicine; ATTEND Hospitalist
PROC: 3E033NZ Introduction of Analgesics, Hypnotics, Sedatives into Peripheral Vein, Percutaneous Approach (ICD-10-PCS; principal; 2018-02-22)
PROC: 3E0337Z Introduction of Electrolytic and Water Balance Substance into Peripheral Vein, Percutaneous Approach (ICD-10-PCS; 2018-02-22)
PROC: 3E033GC Introduction of Other Therapeutic Substance into Peripheral Vein, Percutaneous Approach (ICD-10-PCS; 2018-02-22)
DX: K43.9 Ventral hernia without obstruction or gangrene (principal); R10.84 Generalized abdominal pain; D72.829 Elevated white blood cell count, unspecified; Z85.038 Personal history of other malignant neoplasm of large intestine; K59.00 Constipation, unspecified; Z90.49 Acquired absence of other specified parts of digestive tract; Z92.21 Personal history of antineoplastic chemotherapy; Z91.013 Allergy to seafood; Z95.828 Presence of other vascular implants and grafts; Z79.01 Long term (current) use of anticoagulants
CPT/HCPCS: 36415; 74177-TC; 80048; 80053; 81003; 81015; 82550; 83036; 83605; 83690; 83735; 84100; 84484; 85025; 87040; 87086; 87186; 93005; 93010; 96374; 96375; 99285-25; G0378; J7030